=== PATIENT | male | born 1985 | race Caucasian/White ===

== ENCOUNTER 2018-06-26 22:44 | Emergency (ER) | payer OTHER ==
[~2018-06-26] VITALS: Ht 175.3 cm; Wt 72.7 kg
[2018-06-26 22:46] VITALS: TEMP 97.7
[2018-06-26] MEDS ORDERED: CLARITIN D TAB1 TAB PO (23:07)
[2018-06-26] MEDS ORDERED: PROAIR HFA0.09 MG/AC IH (23:07)
[2018-06-26] MEDS ORDERED: RT ADVAIR 228 DISKUS IH (23:07)
[2018-06-26] MEDS ORDERED: TRIAMCINOLONE A15 G1 TP (23:08)
[2018-06-26 23:43] VITALS: BP 116/73; PULSE 109
== END 2018-06-26 23:45 | disposition home or self-care (01) ==
LOC: COL.ER 22:44
DX: J45.901 Unspecified asthma with (acute) exacerbation (principal)
CPT/HCPCS: J8540